=== PATIENT | male | born 1955 | race Caucasian/White ===

== ENCOUNTER 2016-12-11 08:42 | Outpatient (CLI) | payer BC ==
[2016-12-11 12:36] LABS: Hemoglobin A1c 6.5 % (4.0-6.0)
[2016-12-11 12:53] LABS: ALT (SGPT) 54 U/L (0-55); AST (SGOT) 32 U/L (5-34); Alkaline Phosphatase 86 U/L (40-150); Anion Gap 19 mmol/L (10-20); BUN (Urea Nitrogen) 10 mg/dL (8.4-25.7); Calc. Creatinine Clearance 0 mL/min (70-130); Calcium 9.4 mg/dL (7.8-10.44); Carbon Dioxide 21 mmol/L (23-31); Estimated GFR-MDRD Greater than 90; Globulin 3.2 g/dL (2.4-3.5); LDL Cholesterol, Calculated 134 mg/dL; Protein, Total 7.4 g/dL (5.8-8.1)
[2016-12-11 14:54] LABS: Chloride 103 mmol/L (98-107)
== END 2016-12-11 08:43 ==
LOC: NAVSJIPCSP 08:42
PROVIDERS: ATTEND Internal Medicine
DX: Z79.899 Other long term (current) drug therapy (principal)
CPT/HCPCS: 36415; 80053; 80061; 83036

== ENCOUNTER 2017-04-14 09:28 | Outpatient (CLI) | payer BC ==
[2017-04-14 12:29] LABS: Hemoglobin A1c 6.2 % (4.0-6.0)
[2017-04-14 12:52] LABS: Anion Gap 20 mmol/L (10-20); BUN (Urea Nitrogen) 13 mg/dL (8.4-25.7); Calc. Creatinine Clearance 0 mL/min (70-130); Calcium 9.4 mg/dL (7.8-10.44); Carbon Dioxide 22 mmol/L (23-31); Cardiac Risk 5.5 (Less than 4.5); Chloride 102 mmol/L (98-107); Cholesterol 215 mg/dl (< 200 Desired); Estimated GFR-MDRD 83; Glucose 119 mg/dL (80-115); HDL Cholesterol 39 mg/dL (>60 Neg Risk); LDL Cholesterol, Calculated 123 mg/dL; Potassium 4.2 mmol/L (3.5-5.1); Sodium 140 mmol/L (136-145); Triglycerides 264 mg/dL (Less than 150)
== END 2017-04-14 09:29 | disposition home or self-care (01) ==
LOC: NAVSJIPCSP 09:28
PROVIDERS: ATTEND Internal Medicine
DX: E11.9 Type 2 diabetes mellitus without complications (principal)
CPT/HCPCS: 36415; 80048; 80061; 83036

== ENCOUNTER 2018-05-10 08:45 | Outpatient (CLI) | payer BC ==
--- NOTE | 2018-05-10 11:03 | ULT ---
ULTRASOUND ABDOMEN LIMITED: (RIGHT UPPER QUADRANT) DATE: 05/10/18. HISTORY: Elevated liver function tests in a 62-year-old male. FINDINGS: Gallbladder: Normal wall thickness. Multiple tiny mobile gallstones a few millimeters in size each. No sonographic Wood's sign. No pericholecystic fluid. Common duct: 7 mm. Liver: Diffusely increased echogenicity consistent with fatty liver. Pancreas: Partially obscured by shadowing from bowel gas. Right kidney: No hydronephrosis. IMPRESSION: 1. Hepatic steatosis and mild hepatomegaly. 2. Cholelithiasis. NIMA Estrada POS: [facility]
== END 2018-05-10 08:46 | disposition home or self-care (01) ==
LOC: NAV ULT 08:45
PROVIDERS: ATTEND Internal Medicine
DX: R79.89 Other specified abnormal findings of blood chemistry (principal); K76.0 Fatty (change of) liver, not elsewhere classified; K80.20 Calculus of gallbladder without cholecystitis without obstruction; R16.0 Hepatomegaly, not elsewhere classified
CPT/HCPCS: 76705

== ENCOUNTER 2019-08-01 09:49 | Outpatient (CLI) | payer BC ==
--- NOTE | 2019-08-01 13:54 | ULT ---
CAROTID DOPPLER: Ultrasound Doppler study is performed of the extracranial carotid arteries. INDICATION: Murmur. Abnormal auscultation. FINDINGS: Ultrasound images show moderate echogenic plaque in both bulbs and proximal ICAs. Velocities are nor mal bilaterally. No evidence of hemodynamically significant stenosis. Vertebral arteries show anteg rade flow. IMPRESSION: No evidence of significant stenosis identified. POS: [facility]
== END 2019-08-01 09:50 | disposition home or self-care (01) ==
LOC: NAV ULT 09:49
PROVIDERS: ATTEND Internal Medicine
DX: R01.1 Cardiac murmur, unspecified (principal); I08.1 Rheumatic disorders of both mitral and tricuspid valves
CPT/HCPCS: 93306; 93880

== ENCOUNTER 2020-09-21 11:06 | Emergency (ER) | payer BC, MEDICARE ==
[2020-09-21] MEDS ORDERED: Ondansetron ODT 4 MG TAB ONE (11:50)
== END 2020-09-21 12:29 | disposition home or self-care (01) ==
LOC: NAV ERS 11:06
DX: U07.1 COVID-19 (principal); E11.9 Type 2 diabetes mellitus without complications; E78.5 Hyperlipidemia, unspecified; E78.00 Pure hypercholesterolemia, unspecified; I10 Essential (primary) hypertension; Z87.891 Personal history of nicotine dependence
CPT/HCPCS: 99283; Q0162

== ENCOUNTER 2022-05-01 08:34 | Emergency (ER) | payer MEDICARE, OTHER ==
[2022-05-01 09:51] LABS: #Eosinphils 0.1 thou/uL (0.0-0.7); #Lymphocytes 1.4 thou/uL (1.20-3.40); #Monocytes 0.6 thou/uL (0.11-0.59); #Neutrophils 3.8 thou/uL (1.40-6.50); %Basophils 0.5 % (0.0-1.0); %Eosinophils 2.2 % (0.0-10.0); %Lymphocytes 23.5 % (21.0-51.0); %Monocytes 9.3 % (0.0-10.0); %Neutrophils 64.5 % (42.0-75.0); Hemoglobin 13.4 g/dL (14.0-18.0); Mean Corpuscular HGB CONC 30.2 g/dL (32.0-36.0); Mean Corpuscular Hemoglobin 30.8 pg (27.0-31.0); Mean Platelet Volume 9.1 fL (7.4-10.4); Platelet Count 157 thou/uL (130-400); RBC Distribution Width 14.3 % (11.5-14.5); Red Blood Cell (RBC) Count 4.35 mill/uL (4.70-6.10); White Blood Cell (WBC) Count 5.9 thou/uL (4.8-10.8)
[2022-05-01 10:09] LABS: Anion Gap 18 mmol/L (10-20); BUN (Urea Nitrogen) 11 mg/dL (8.4-25.7); Calc. Creatinine Clearance 0 mL/min (70-130); Calcium 9.9 mg/dL (7.8-10.44); Carbon Dioxide 25 mmol/L (23-31); Chloride 99 mmol/L (98-107); Estimated GFR 88; Glucose 142 mg/dL (80-115); Potassium 4.2 mmol/L (3.5-5.1); Sodium 138 mmol/L (136-145); Uric Acid 8.9 mg/dL (3.5-7.2)
== END 2022-05-01 10:45 | disposition home or self-care (01) ==
LOC: NAV ERS 08:34
DX: M10.9 Gout, unspecified (principal); I10 Essential (primary) hypertension; Z87.891 Personal history of nicotine dependence; E11.9 Type 2 diabetes mellitus without complications; Z79.84 Long term (current) use of oral hypoglycemic drugs; Z79.82 Long term (current) use of aspirin
CPT/HCPCS: 80048; 84550; 85025

== ENCOUNTER 2022-08-23 00:34 | Emergency (ER) | payer MEDICARE, OTHER ==
[2022-08-23] MEDS ORDERED: Fluorescein Opthalmic Strip ONE (00:43)
[2022-08-23] MEDS ORDERED: Proparacaine 0.5% Opth 15 ML BOT ONE (00:43)
[2022-08-23] MEDS ORDERED: traMADol HCl 50 MG TAB ONE (00:58)
== END 2022-08-23 00:43 | disposition home or self-care (01) ==
LOC: NAV ERS 00:34
DX: H16.133 Photokeratitis, bilateral (principal); E11.9 Type 2 diabetes mellitus without complications; E78.00 Pure hypercholesterolemia, unspecified; I10 Essential (primary) hypertension; Z87.891 Personal history of nicotine dependence; Z79.84 Long term (current) use of oral hypoglycemic drugs; Z79.899 Other long term (current) drug therapy
CPT/HCPCS: 99283

== ENCOUNTER 2022-11-28 18:23 | Emergency (ER) | payer MEDICARE, OTHER ==
[2022-11-28] MEDS ORDERED: Lidocaine 1% (PF) 30 ML VIAL ONE (18:56)
[2022-11-28] MEDS ORDERED: Boostrix 0.5 ML (Tdap) VIAL (>/=7 yrs of age) ONE (18:59)
== END 2022-11-28 19:35 | disposition home or self-care (01) ==
LOC: NAV ERS 18:23
DX: S61.412A Laceration without foreign body of left hand, initial encounter (principal); E11.9 Type 2 diabetes mellitus without complications; I10 Essential (primary) hypertension; E78.00 Pure hypercholesterolemia, unspecified; Z87.891 Personal history of nicotine dependence; Z23 Encounter for immunization; Z79.84 Long term (current) use of oral hypoglycemic drugs; Z79.82 Long term (current) use of aspirin; Z79.899 Other long term (current) drug therapy; W26.8XXA Contact with other sharp object(s), not elsewhere classified, initial encounter; Y92.009 Unspecified place in unspecified non-institutional (private) residence as the place of occurrence of the external cause
CPT/HCPCS: 12002; 90715; J2001

== ENCOUNTER 2024-10-12 10:57 | Outpatient (CLI) | payer MEDICARE | END 2024-10-12 10:58 | disposition home or self-care (01) | LOC: NAV RAD 10:57 | PROVIDERS: ATTEND Family Medicine | DX: I35.0 Nonrheumatic aortic (valve) stenosis (principal); J40 Bronchitis, not specified as acute or chronic; R06.02 Shortness of breath; Z87.891 Personal history of nicotine dependence | CPT/HCPCS: 71046 ==